=== PATIENT | female | born 1980 | race Hispanic/Latino ===

== ENCOUNTER 2018-10-07 20:06 | Inpatient (IN) | payer OTHER ==
[2018-10-07] MEDS ORDERED: NACL 0.9% 1000 ML 1,000 ML IV ONE ×2 (20:16→20:28)
[2018-10-07] MEDS ORDERED: BENADRYL IV ONE (20:29)
[2018-10-07] MEDS ORDERED: SOLU-Medrol IV ONE (20:29)
--- NOTE | 2018-10-07 20:43 | Emergency Department Report ---
ED N/V/D HPI - General Chief complaint: Nausea/Vomiting/Diarrhea Stated complaint: POSS ALLERGIC REACTION Time Seen by Provider: 10/07/18 20:14 Source: patient, family Mode of arrival: Ambulatory Limitations: No Limitations - History of Present Illness Initial comments: Patient is a 38-year-old female who is visiting [place] from [place] who also has a history of mast cell activation disorder and multiple allergies who is presenting with 3 days of nausea vomiting diarrhea. Patient states that she has had copious amounts of nausea vomiting. Patient states her stools possibly have blood in them. She states she felt as though her throat was closing yesterday and took her EpiPen. Patient is denying any itching or hives at this time. Patient's main complaint besides the nausea vomiting is that she is very weak at this time. Patient's states she has passed out in the past several days. Location: diffuse Radiation: none Severity: moderate Pain Scale: 6 Quality: cramping Consistency: constant Associated Symptoms: malaise, nausea/vomiting, shortness of breath, syncope, weakness. denies: chest pain, cough, diaphoresis, fever/chills, headaches, loss of appetite, rash, dysuria ED Review of Systems ROS: Stated complaint: POSS ALLERGIC REACTION Other details as noted in HPI Comment: All other systems reviewed and negative Skin: other (blisters at the base of the bilateral feet) ED Physical Exam - General Limitations: No Limitations General appearance: alert, lethargic - Head Head exam: Present: atraumatic, normocephalic - Eye Eye exam: Present: normal appearance, PERRL, EOMI - ENT ENT exam: Present: mucous membranes moist - Neck Neck exam: Present: normal inspection - Respiratory Respiratory exam: Present: normal lung sounds bilaterally. Absent: respiratory distress, wheezes, rales, rhonchi, stridor - Cardiovascular Cardiovascular Exam: Present: regular rate, normal rhythm. Absent: systolic murmur, diastolic murmur, rubs, gallop - GI/Abdominal GI/Abdominal exam: Present: soft, tenderness (diffuse), normal bowel sounds. Absent: distended, guarding, rebound, rigid - Extremities Exam Extremities exam: Present: normal inspection - Back Exam Back exam: Present: normal inspection - Neurological Exam Neurological exam: Present: alert, oriented X3 - Psychiatric Psychiatric exam: Present: normal affect, normal mood - Skin Skin exam: Present: warm, dry, intact, vesicles (base of bilateral feet with some mild surrounding erythema), pallor. Absent: normal color, rash ED Course Vital Signs 10/07/18 10/07/18 10/07/18 20:30 20:46 21:00 Pulse Rate 79 88 Respiratory 11 L 15 17 Rate Blood Pressure 112/78 112/78 O2 Sat by Pulse 99 100 Oximetry 10/07/18 10/07/18 10/07/18 21:15 21:26 21:30 Pulse Rate Respiratory 25 H 18 16 Rate Blood Pressure 112/78 104/68 O2 Sat by Pulse 99 100 Oximetry 10/07/18 10/07/18 10/07/18 21:45 22:29 22:31 Pulse Rate Respiratory 25 H Rate Blood Pressure 104/68 110/68 110/68 O2 Sat by Pulse 98 99 Oximetry 10/07/18 10/07/18 10/07/18 22:45 23:00 23:15 Pulse Rate Respiratory Rate Blood Pressure 110/68 116/69 116/69 O2 Sat by Pulse 100 100 100 Oximetry ED Medical Decision Making - Lab Data Result diagrams: 10/07/18 20:43 10/07/18 20:43 Lab Results 10/07/18 10/07/18 10/07/18 Range/Units 20:43 20:43 21:16 WBC 9.6 (4.5-11.0) K/mm3 RBC 4.33 (3.65-5.03) M/mm3 Hgb 11.0 (10.1-14.3) gm/dl Hct 33.0 (30.3-42.9) % MCV 76 L (79-97) fl MCH 25 L (28-32) pg MCHC 33 (30-34) % RDW 18.2 H (13.2-15.2) % Plt Count 417 (140-440) K/mm3 Lymph % (Auto) 6.3 L (13.4-35.0) % [place] % (Auto) 7.3 (0.0-7.3) % Eos % (Auto) 0.1 (0.0-4.3) % Baso % (Auto) 0.2 (0.0-1.8) % Lymph # 0.6 L (1.2-5.4) K/mm3 [place] # 0.7 (0.0-0.8) K/mm3 Eos # 0.0 (0.0-0.4) K/mm3 Baso # 0.0 (0.0-0.1) K/mm3 Seg Neutrophils % 86.1 H (40.0-70.0) % Seg Neutrophils # 8.2 H (1.8-7.7) K/mm3 Sodium 137 (137-145) mmol/L Potassium 3.4 L (3.6-5.0) mmol/L Chloride 100.8 (98-107) mmol/L Carbon Dioxide 19 L (22-30) mmol/L Anion Gap 21 mmol/L BUN 23 H (7-17) mg/dL Creatinine 0.9 (0.7-1.2) mg/dL Estimated GFR > 60 ml/min BUN/Creatinine Ratio 26 % Glucose 135 H (65-100) mg/dL POC Glucose 120 H (70-105) Calcium 8.3 L (8.4-10.2) mg/dL Total Bilirubin 0.70 (0.1-1.2) mg/dL AST 75 H (5-40) units/L ALT 72 H (7-56) units/L Alkaline Phosphatase 179 H (35-129) units/L Total Protein 6.3 (6.3-8.2) g/dL Albumin 3.3 L (3.9-5) g/dL Albumin/Globulin Ratio 1.1 % Urine Bilirubin (Negative) Urine RBC (Auto) (0.0-6.0) /HPF U Epithel Cells (Auto) (0-13.0) /HPF 10/07/18 Range/Units Unknown WBC (4.5-11.0) K/mm3 RBC (3.65-5.03) M/mm3 Hgb (10.1-14.3) gm/dl Hct (30.3-42.9) % MCV (79-97) fl MCH (28-32) pg MCHC (30-34) % RDW (13.2-15.2) % Plt Count (140-440) K/mm3 Lymph % (Auto) (13.4-35.0) % [place] % (Auto) (0.0-7.3) % Eos % (Auto) (0.0-4.3) % Baso % (Auto) (0.0-1.8) % Lymph # (1.2-5.4) K/mm3 [place] # (0.0-0.8) K/mm3 Eos # (0.0-0.4) K/mm3 Baso # (0.0-0.1) K/mm3 Seg Neutrophils % (40.0-70.0) % Seg Neutrophils # (1.8-7.7) K/mm3 Sodium (137-145) mmol/L Potassium (3.6-5.0) mmol/L Chloride (98-107) mmol/L Carbon Dioxide (22-30) mmol/L Anion Gap mmol/L BUN (7-17) mg/dL Creatinine (0.7-1.2) mg/dL Estimated GFR ml/min BUN/Creatinine Ratio % Glucose (65-100) mg/dL POC Glucose (70-105) Calcium (8.4-10.2) mg/dL Total Bilirubin (0.1-1.2) mg/dL AST (5-40) units/L ALT (7-56) units/L Alkaline Phosphatase (35-129) units/L Total Protein (6.3-8.2) g/dL Albumin (3.9-5) g/dL Albumin/Globulin Ratio % Urine Bilirubin Neg (Negative) Urine RBC (Auto) 1.0 (0.0-6.0) /HPF U Epithel Cells (Auto) 2.0 (0-13.0) /HPF - Radiology Data [facility] [address] [place] [address] Cat Scan Report Signed Patient: LUTHER SOTOMAYOR MR#: [id number] : 1980 Acct:[id number] Age/Sex: 38 / F ADM Date: 10/07/18 Loc: ED Attending Dr: Ordering Physician: GORDO KENDALL MD Date of Service: 10/07/18 Procedure(s): CT abdomen pelvis w con Accession Number(s): [id number] cc: GORDO KENDALL MD PROCEDURE: CT ABDOMEN PELVIS W CON TECHNIQUE: Computerized axial tomography of the abdomen and pelvis was performed after the IV injection of iodinated nonionic contrast. CT DOSE LENGTH PRODUCT: mGycm HISTORY: NVD and pain COMPARISONS: None . FINDINGS: Liver, spleen, pancreas and adrenal glands are within normal limits. Bilateral kidneys demonstrate uniform enhancement without hydronephrosis. Aorta is of normal caliber. There is no free fluid or free air. Gallbladder is unremarkable. Mild degree of fluid is noted in the colon. Mild degree diffuse colonic wall thickening is noted. Appendix is normal. A 2.4 x 3 cm cyst is noted involving the right adnexal region. Vertebral height is normal. Mild degree degenerative changes are noted involving the lumbar spine. IMPRESSION: Thickened colonic knowles are consistent with nonspecific colitis. A 2.4 x 3 cm cystic lesion in the right adnexal region most likely represents a right ovarian cyst. This document is electronically signed by Amina Presley MD., October 07 2018 10:56:53 PM ET Transcribed By: [facility] Dictated By: AMINA PRESLEY Electronically Authenticated By: AMINA PRESLEY Signed Date/Time: 10/07/182257 DD/ 34 TD/TT: 10/07/182235 - Medical Decision Making Active Medications Generic Name Dose Route Start Last Admin Trade Name Freq PRN Reason Stop Dose Admin Metronidazole 500 mg in 100 mls @ 200 mls/hr 10/07/18 23:09 Flagyl 500 Mg/100 Ml IV 10/07/18 23:38 ONCE ONE Protocol Piperacillin Sod/Tazobactam Sod 4.5 gm in 100 mls @ 200 mls/hr 10/07/18 23:09 Zosyn/Ns 4.5gm/100ml IV 10/07/18 23:38 ONCE ONE Patient was hydrated and given her menstrual symptomatic relief. Patient still very tender and abdomen and patient was given Bentyl and morphine. Patient started on IV antibiotics for diffuse colitis and the patient be admitted to the hospitalist service at this time. Critical care attestation.: If time is entered above; I have spent that time in minutes in the direct care of this critically ill patient, excluding procedure time. ED Disposition Clinical Impression: Dehydration, Vasovagal syncope, Colitis Disposition: OP ADMIT IP TO THIS HOSP Is pt being admited?: Yes Does the pt Need Aspirin: No Condition: Stable Time of Disposition: 23:29
[2018-10-07 20:57] LABS: Basophils % (Auto) 0.2 % (0.0-1.8); Eosinophils % (Auto) 0.1 % (0.0-4.3); Lymphocytes # (Auto) 0.6 K/mm3 (1.2-5.4); Lymphocytes % (Auto) 6.3 % (13.4-35.0); Mean Corpuscular HGB Conc 33 % (30-34); Mean Corpuscular Volume 76 fl (79-97); Monocytes # (Auto) 0.7 K/mm3 (0.0-0.8); Monocytes % (Auto) 7.3 % (0.0-7.3); Platelet Count 417 K/mm3 (140-440); Red Blood Count 4.33 M/mm3 (3.65-5.03); Red Cell Distribution Width 18.2 % (13.2-15.2)
[2018-10-07 21:12] LABS: Alanine Aminotransferase 72 units/L (7-56); Albumin 3.3 g/dL (3.9-5); BUN/Creatinine Ratio 26; Blood Urea Nitrogen 23 mg/dL (7-17); Calcium 8.3 mg/dL (8.4-10.2); Hemolysis Index 40
--- NOTE | 2018-10-07 22:58 | Cat Scan Report ---
PROCEDURE: CT ABDOMEN PELVIS W CON TECHNIQUE: Computerized axial tomography of the abdomen and pelvis was performed after the IV inject ion of iodinated nonionic contrast. CT DOSE LENGTH PRODUCT: mGycm HISTORY: NVD and pain COMPARISONS: None . FINDINGS: Liver, spleen, pancreas and adrenal glands are within normal limits. Bilateral kidneys demonstrate un iform enhancement without hydronephrosis. Aorta is of normal caliber. There is no free fluid or free air. Gallbladder is unremarkable. Mild degree of fluid is noted in the colon. Mild degree diffuse col onic wall thickening is noted. Appendix is normal. A 2.4 x 3 cm cyst is noted involving the right adn exal region. Vertebral height is normal. Mild degree degenerative changes are noted involving the lum bar spine. IMPRESSION: Thickened colonic knowles are consistent with nonspecific colitis. A 2.4 x 3 cm cystic lesion in the right adnexal region most likely represents a right ovarian cyst. This document is electronically signed by Louis Presley MD., October 07 2018 10:56:53 PM ET
[2018-10-07 23:02] LABS: Bilirubin,Urine NEG (Negative); Blood,Urine NEG (Negative); Color,Urine Yellow (Yellow); Mucus,Urine FEW /HPF
[2018-10-07] MEDS ORDERED: MORPHINE IV ONE (23:08)
[2018-10-07] MEDS ORDERED: ZOFRAN IV ONE (23:08)
[2018-10-07] MEDS ORDERED: BENTYL IM ONE (23:08)
[2018-10-07] MEDS ORDERED: FLAGYL 500 MG/100 ML 500 MG/100 ML BAG IV ONE (23:09)
[2018-10-07] MEDS ORDERED: ZOSYN/NS 4.5GM/100ML 4.5 GM/100 ML VIAL IV ONE (23:09)
[2018-10-07 23:12] LABS: HCG Qualitative,Urine Negative (Negative)
[2018-10-08] MEDS ORDERED: FLAGYL 500 MG/100 ML 500 MG/100 ML BAG IV ONE ×2 (00:45→01:00)
[2018-10-08] MEDS ORDERED: ZOFRAN IV PRN (00:46)
[2018-10-08] MEDS ORDERED: TYLENOL PO PRN (00:47)
[2018-10-08] MEDS ORDERED: PHENERGAN PO ONE (03:10)
[2018-10-08] MEDS ORDERED: PHENERGAN ONE (03:13)
[2018-10-08] MEDS ORDERED: MORPHINE ONE (03:14)
[2018-10-08] MEDS: MORPHINE IV PRN ×2 (03:17→10:16)
[2018-10-08] MEDS: NACL 0.9% 1000 ML 1,000 ML IV SCH ×3 (04:46→22:45)
[2018-10-08] MEDS: FLAGYL 500 MG/100 ML 500 MG/100 ML BAG IV SCH ×3 (05:07→22:59)
--- NOTE | 2018-10-08 05:29 | History and Physical Report ---
CHIEF COMPLAINT: Nausea, vomiting, and diarrhea. HISTORY OF PRESENTING ILLNESS: The patient is a 38-year-old female who is visiting [place] from [place] and has been having nausea, vomiting, and diarrhea going on for 3 days. The patient states that she has had large amount of vomiting going on and suspect that it could be from allergic reaction because she has history of mast cell activation disorder with multiple allergies and the patient said that she possibly might have some blood in the stool and said that she feels like throat was closing up yesterday and then she had to inject herself with her EpiPen. There is no history of hives or itching. Besides nausea and vomiting, the patient feels weak and denies history of chest pain or shortness of breath, and presented for evaluation. PAST MEDICAL HISTORY: The patient's past medical history is pertinent for mast cell activation disorder. PAST SURGICAL HISTORY: Unknown. FAMILY HISTORY: Noncontributory. SOCIAL HISTORY: The patient does not smoke, does not drink alcohol, and does not use illicit drugs. MEDICATIONS: The patient's home medications are not fully known other than the EpiPen that the patient uses as needed for allergic reaction. ALLERGIES: THE PATIENT IS ALLERGIC TO CORN, GELATIN, SHELLFISH, AND MANY OTHER PRODUCTS. REVIEW OF SYSTEMS: CONSTITUTIONAL: There is no fever, no chills, no diaphoresis. HEENT: There is no headache or sore throat. CARDIOVASCULAR SYSTEM: There is no chest pain or orthopnea. RESPIRATORY SYSTEM: There is no shortness of breath or cough. GASTROINTESTINAL: Nausea, vomiting, and diarrhea are noted. Feeling of throat closing up also noted. There is no constipation. NEUROLOGICAL SYSTEM: There is no numbness, no dizziness, no altered mental status. MUSCULOSKELETAL SYSTEM: There is no joint pain or swelling. DERMATOLOGICAL SYSTEM: There is no skin rash or itching. GENITOURINARY SYSTEM: There is no dysuria, hematuria, or flank pain. Rest of system review is normal. PHYSICAL EXAMINATION: GENERAL: At the time of exam, the patient was found to be alert and oriented x 3; and not in acute distress. VITAL SIGNS: At the initial time of presentation show normal temperature with pulse of 79, respirations 11, blood pressure of 102/78, O2 sat of 99% on room air. HEENT: Exam show pupils to be equal, round, reactive to light and accommodating. Extraocular muscles are intact. NECK: Supple with no JVD or carotid bruit. CARDIOVASCULAR SYSTEM: Show normal first and second heart sounds with no gallops or murmurs. RESPIRATORY SYSTEM: Show good air entry on both sides of the lungs with no abnormal breath sounds. GASTROINTESTINAL SYSTEM: Show abdomen to be full, soft with generalized tenderness, but no guarding, no rigidity, no rebound tenderness, and no organomegaly with bowel sounds normal. NEUROLOGIC SYSTEM: Show no focal deficit. MUSCULOSKELETAL SYSTEM: Show no joint swelling or tenderness. DERMATOLOGICAL SYSTEM: Show no skin rash. GENITOURINARY SYSTEM: Showing no costovertebral angle tenderness. PERTINENT IMAGING STUDIES: The patient had CT of the abdomen and pelvis done. CT of the abdomen and pelvis showed thickened colonic knowles consistent with nonspecific colitis. There is finding of right adnexal region cyst believed to be right ovarian cyst. LABORATORY RESULTS: The patient has CBC done with normal white count, normal hemoglobin, and normal hematocrit with elevated segmented neutrophil count in the CBC differential of 86.1. The patient's chemistry shows slight decrease in potassium of 3.4 with low CO2 of 19, slightly decreased calcium level of 8.3, elevated AST of 75 with elevated ALT of 72, and slightly decreased albumin of 3.3. The patient's urinalysis show elevated urine gravity of 1.050 with negative urine leukocyte esterase and negative urine nitrites and normal urine wbc. The patient's urine test was negative. DIAGNOSES: 1. Colitis. 2. Syncopal attack. 3. Acute gastroenteritis. PLAN OF CARE: 1. The patient will be admitted to medical surgical rojas on remote telemetry. 2. The patient will be on IV normal saline at 125 mL an hour. 3. The patient will be on IV morphine 2 mg every 3 hours as needed for pain and IV Zofran 4 mg every 8 hours for nausea and vomiting. 4. The patient will be on IV Zosyn 3.375 grams q. 8 hours and IV metronidazole 500 mg every 8 hours. 5. The patient will be on Tylenol 650 mg by mouth every 4 hours as needed for fever and headache. 6. The patient's home medication will be started as shown in the medication reconciliation section. JOB# [id number] OCN/NTS
[2018-10-08] MEDS: ZOSYN/NS 3.375GM/50ML 3.375 GM/50 ML BAG IV SCH ×3 (06:10→22:45)
[2018-10-08] MEDS ORDERED: HEPARIN SUB-Q SCH (10:00)
[2018-10-08] MEDS ORDERED: BRIVARACETAM 50 MG PO SCH (10:00)
[2018-10-08] MEDS ORDERED: BUPROPION 150 MG PO SCH (11:30)
[2018-10-08 12:39] LABS: Alanine Aminotransferase 55 units/L (7-56); Albumin 2.6 g/dL (3.9-5); Bilirubin,Direct < 0.2 mg/dL (0-0.2)
[2018-10-08 14:18] LABS: Hematocrit 29.4 % (30.3-42.9); Hemoglobin 9.8 gm/dl (10.1-14.3)
[2018-10-08] MEDS: WELLBUTRIN PO SCH (15:08)
[2018-10-08] MEDS: DIFLUCAN 200 MG/100 ML BAG IV SCH (15:08)
[2018-10-08] MEDS: ZOFRAN IV PRN ×2 (15:09→22:58)
[2018-10-08] MEDS: DILAUDID IV PRN ×2 (15:09→22:58)
[2018-10-08] MEDS: BENTYL PO SCH ×3 (15:09→22:59)
--- NOTE | 2018-10-08 17:21 | Progress Note ---
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 She denied any regional hives. I added to the hospital she was lethargic appearing and complaining mainly of the nausea vomiting. CTAP; IMPRESSION: Thickened colonic knowles are consistent with nonspecific colitis. A 2.4 x 3 cm cystic lesion in the right adnexal region most likely r epresents a right ovarian cyst. 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 History Interval history: Admitted with abdominal pain nausea vomiting and possible allergic reaction Patient seen and examined this morning still complains of nausea vomiting and di arrhea. Reports abdominal pain 3/10 in intensity. Reports that she has chronic pain syndrome secondary to ? Herve danlos syndrome. Hospitalist Physical - Physical exam Narrative exam: VITAL SIGNS: Reviewed. GENERAL: The patient appeared well nourished and normally developed, lethargic appearing. Vital signs as documented. HEAD: No signs of head trauma. EYES: Pupils are equal. Extraocular motions intact. EARS: Hearing grossly intact. MOUTH: Oropharynx is normal. NECK: No adenopathy, no JVD. CHEST: Chest with clear breath sounds bilaterally. No wheezes, rales, or rhonchi. CARDIAC: Regular rate and rhythm. S1 and S2, without murmurs, gallops, or rubs. VASCULAR: No Edema. Peripheral pulses normal and equal in all extremities. ABDOMEN: Soft, tender but nondistended. No rebound or guarding, and no masses palpated. Bowel Sounds normal. MUSCULOSKELETAL: Good range of motion of all major joints. Extremities without clubbing, cyanosis or edema. NEUROLOGIC EXAM: Alert and oriented x 3 No focal sensory or strength deficits. Speech normal. Follows commands. PSYCHIATRIC: Mood normal. SKIN: Pale appearing right fooT on the hallux lesion with erythema. - Constitutional Vitals: Temp Pulse Resp BP Pulse Ox 98.0 F 55 L 19 112/63 98 10/08/18 11:31 10/08/18 11:32 10/08/18 11:31 10/08/18 11:31 10/08/18 11:32 Results - Labs CBC & Chem 7: 10/08/18 13:40 10/07/18 20:43 Labs: Laboratory Last Values WBC 9.6 K/mm3 (4.5-11.0) 10/07/18 20:43 RBC 4.33 M/mm3 (3.65-5.03) 10/07/18 20:43 Hgb 9.8 gm/dl (10.1-14.3) L 10/08/18 13:40 Hct 29.4 % (30.3-42.9) L 10/08/18 13:40 MCV 76 fl (79-97) L 10/07/18 20:43 MCH 25 pg (28-32) L 10/07/18 20:43 MCHC 33 % (30-34) 10/07/18 20:43 RDW 18.2 % (13.2-15.2) H 10/07/18 20:43 Plt Count 417 K/mm3 (140-440) 10/07/18 20:43 Lymph % (Auto) 6.3 % (13.4-35.0) L 10/07/18 20:43 [place] % (Auto) 7.3 % (0.0-7.3) 10/07/18 20:43 Eos % (Auto) 0.1 % (0.0-4.3) 10/07/18 20:43 Baso % (Auto) 0.2 % (0.0-1.8) 10/07/18 20:43 Lymph # 0.6 K/mm3 (1.2-5.4) L 10/07/18 20:43 [place] # 0.7 K/mm3 (0.0-0.8) 10/07/18 20:43 Eos # 0.0 K/mm3 (0.0-0.4) 10/07/18 20:43 Baso # 0.0 K/mm3 (0.0-0.1) 10/07/18 20:43 Seg Neutrophils % 86.1 % (40.0-70.0) H 10/07/18 20:43 Seg Neutrophils # 8.2 K/mm3 (1.8-7.7) H 10/07/18 20:43 Sodium 137 mmol/L (137-145) 10/07/18 20:43 Potassium 3.4 mmol/L (3.6-5.0) L 10/07/18 20:43 Chloride 100.8 mmol/L (98-107) 10/07/18 20:43 Carbon Dioxide 19 mmol/L (22-30) L 10/07/18 20:43 Anion Gap 21 mmol/L 10/07/18 20:43 BUN 23 mg/dL (7-17) H 10/07/18 20:43 Creatinine 0.9 mg/dL (0.7-1.2) 10/07/18 20:43 Estimated GFR > 60 ml/min 10/07/18 20:43 BUN/Creatinine Ratio 26 % 10/07/18 20:43 Glucose 135 mg/dL (65-100) H 10/07/18 20:43 POC Glucose 126 (70-105) H 10/08/18 11:33 Calcium 8.3 mg/dL (8.4-10.2) L 10/07/18 20:43 Total Bilirubin 0.40 mg/dL (0.1-1.2) 10/08/18 11:30 Direct Bilirubin < 0.2 mg/dL (0-0.2) 10/08/18 11:30 Indirect Bilirubin 0.2 mg/dL 10/08/18 11:30 AST 40 units/L (5-40) 10/08/18 11:30 ALT 55 units/L (7-56) 10/08/18 11:30 Alkaline Phosphatase 129 units/L (35-129) 10/08/18 11:30 Total Protein 5.9 g/dL (6.3-8.2) L 10/08/18 11:30 Albumin 2.6 g/dL (3.9-5) L 10/08/18 11:30 Albumin/Globulin Ratio 0.8 % 10/08/18 11:30 Urine Color Yellow (Yellow) 10/07/18 Unknown Urine Turbidity Clear (Clear) 10/07/18 Unknown Urine pH 5.0 (5.0-7.0) 10/07/18 Unknown Ur Specific [place] 1.050 (1.003-1.030) H 10/07/18 Unknown Urine Protein 30 mg/dl mg/dL (Negative) 10/07/18 Unknown Urine Glucose (UA) Neg mg/dL (Negative) 10/07/18 Unknown Urine Ketones 80 mg/dL (Negative) 10/07/18 Unknown Urine Blood Neg (Negative) 10/07/18 Unknown Urine Nitrite Neg (Negative) 10/07/18 Unknown Urine Bilirubin Neg (Negative) 10/07/18 Unknown Urine Urobilinogen 2.0 mg/dL (<2.0) 10/07/18 Unknown Ur Leukocyte Esterase Neg (Negative) 10/07/18 Unknown Urine WBC (Auto) 1.0 /HPF (0.0-6.0) 10/07/18 Unknown Urine RBC (Auto) 1.0 /HPF (0.0-6.0) 10/07/18 Unknown U Epithel Cells (Auto) 2.0 /HPF (0-13.0) 10/07/18 Unknown Urine Mucus Few /HPF 10/07/18 Unknown Urine HCG, Qual Negative (Negative) 10/07/18 Unknown Active Medications - Current Medications Current Medications: Generic Name Dose Route Start Last Admin Trade Name Freq PRN Reason Stop Dose Admin Acetaminophen 650 mg 10/08/18 00:47 Tylenol PO Q4H PRN Fever >101 Bupropion HCl 150 mg 10/08/18 13:30 10/08/18 15:08 Wellbutrin PO 150 mg DAILY JOANA Administration Dicyclomine HCl 10 mg 10/08/18 14:00 10/08/18 15:09 Bentyl PO 10 mg QID JOANA Administration Hydromorphone HCl 1 mg 10/08/18 10:59 10/08/18 15:09 Dilaudid IV 1 mg Q4H PRN Administration Pain , Severe (7-10) Sodium Chloride 1,000 mls @ 150 mls/hr 10/07/18 23:45 10/08/18 13:41 Nacl 0.9% 1000 Ml IV 125 mls/hr DIRECT JOANA Administration Metronidazole 500 mg in 100 mls @ 100 mls/hr 10/08/18 06:00 10/08/18 13:37 Flagyl 500 Mg/100 Ml IV 100 mls/hr Q8HR JOANA Administration Protocol Piperacillin Sod/Tazobactam Sod 3.375 gm in 50 mls @ 100 mls/hr 10/08/18 06:00 10/08/18 16:31 Zosyn/Ns 3.375gm/50ml IV 100 mls/hr Q8HR JOANA Administration Protocol Fluconazole 200 mg in 100 mls @ 100 mls/hr 10/08/18 12:00 10/08/18 15:08 Diflucan IV 100 mls/hr Q24HR JOANA Administration Protocol Levothyroxine Sodium 25 mcg 10/09/18 06:00 Synthroid IV DAILY@0600 [facility] Miscellaneous Medication 50 mg 10/08/18 10:00 Brivaracetam [Briviact] PO BID [facility] Ondansetron HCl 4 mg 10/08/18 11:29 10/08/18 15:09 Zofran IV 4 mg Q4H PRN Administration Nausea And Vomiting
[2018-10-08 22:01] LABS: Amphetamine Screen,Urine PRESUMPTIVE NEGATIVE; Cannabinoid Screen,Urine PRESUMPTIVE NEGATIVE; Cocaine Screen,Urine PRESUMPTIVE NEGATIVE; Methadone Screen,Urine PRESUMPTIVE NEGATIVE; Opiate Screen,Urine PRESUMPTIVE NEGATIVE
[2018-10-08 22:16] LABS: Benzodiazepines Screen,Urine PRESUMPTIVE POSITIVE
[2018-10-09] MEDS: ZOFRAN IV PRN (03:54)
[2018-10-09] MEDS: SYNTHROID IV SCH (05:49)
[2018-10-09] MEDS: FLAGYL 500 MG/100 ML 500 MG/100 ML BAG IV SCH (05:56)
[2018-10-09] MEDS: NACL 0.9% 1000 ML 1,000 ML IV SCH (06:11)
[2018-10-09] MEDS ORDERED: D5NS 1,000 ML IV SCH (09:00)
[2018-10-09] MEDS ORDERED: FLEXERIL PO PRN (09:01)
[2018-10-09] MEDS ORDERED: IMODIUM PO PRN (09:01)
[2018-10-09] MEDS ORDERED: PROVENTIL IH PRN (09:01)
[2018-10-09] MEDS ORDERED: ZOFRAN IV PRN (09:11)
[2018-10-09] MEDS: BENADRYL IV SCH ×2 (10:57→18:31)
[2018-10-09] MEDS: DIFLUCAN 200 MG/100 ML BAG IV SCH (11:01)
[2018-10-09] MEDS: CLARITIN PO SCH (11:01)
[2018-10-09] MEDS: BENTYL PO SCH ×4 (11:02→21:16)
[2018-10-09] MEDS: WELLBUTRIN PO SCH (11:03)
[2018-10-09] MEDS: PEPCID PO SCH ×3 (11:14→21:16)
[2018-10-09] MEDS: ANCEF/NS 1 GM/50 ML 1 GM/50 ML BAG IV SCH ×2 (13:25→21:19)
[2018-10-09] MEDS ORDERED: VALIUM PO NR (14:37)
--- NOTE | 2018-10-09 14:37 | Progress Note ---
Assessment and Plan Assessment and plan: Patient is a 38-year-old female visiting [place] from [place] and presented to the hospital with nausea vomiting and diarrhea has been ongoing for 3 days, she states that she also has Herve danlos syndrome, the day prior to admission she reported by systolic function is closing and took her EpiPen. 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 Postural Orthostatic Tachycardia syndrome Erratic Bp Essential tremors Angoedema Patient has multiple medications which I have given to nursing staff to updated the med rec CTAP; IMPRESSION: Thickened colonic knowles are consistent with nonspecific colitis. A 2.4 x 3 cm cystic lesion in the right adnexal region most likely represents a right ovarian cyst. Colitis- Possible Viral with underlying gastroenteritis in the setting of significant medical hx Recurrent Diarrhea Nausea and vomiting NEAR syncope Acute gastroenteritis Right foot cellulites Chronic pain syndrome secondary to HERVE,danlos syndrome Anemia Right adnexal lesion ovarian cyst Hypokalemia Plan Continue supportive care We called and verified Hydromorphone dose from her pharmacy, Can switch to oral when able to keep food down Replace electrolytes Although I think patient has more of viral etiology, will continue abx in the setting of lower ext cellulitis also. Will give a Dose of valium at home dose, I wander if patients if patients intermittent disathria is secondary to underlying seizure like activity Antiemetics Pain control Wound care consult noted Continue abx, add antifungal DVT/GI prophy Plan of care discussed with the patient. History Interval history: Admitted with abdominal pain nausea vomiting and possible allergic reaction Patient seen and examined this morning still complains of nausea vomiting and diarrhea. Reports abdominal pain 3/10 in intensity. at bedside. Per nursing staff still with some nausea and vomiting Hospitalist Physical - Physical exam Narrative exam: VITAL SIGNS: Reviewed. GENERAL: The patient appeared well nourished and normally developed, lethargic appearing. Vital signs as documented. HEAD: No signs of head trauma. EYES: Pupils are equal. Extraocular motions intact. EARS: Hearing grossly intact. MOUTH: Oropharynx is normal. NECK: No adenopathy, no JVD. CHEST: Chest with clear breath sounds bilaterally. No wheezes, rales, or rhonchi. CARDIAC: Regular rate and rhythm. S1 and S2, without murmurs, gallops, or rubs. VASCULAR: No Edema. Peripheral pulses normal and equal in all extremities. ABDOMEN: Soft, tender but nondistended. No rebound or guarding, and no masses palpated. Bowel Sounds normal. MUSCULOSKELETAL: Good range of motion of all major joints. Extremities without clubbing, cyanosis or edema. NEUROLOGIC EXAM: Alert and oriented x 3 No focal sensory or strength deficits. Speech normal. Follows commands. PSYCHIATRIC: Mood normal. SKIN: Pale appearing, right foot on the hallux lesion with erythema. - Constitutional Vitals: Temp Pulse Resp BP Pulse Ox 98.2 F 52 L 28 H 138/80 95 10/09/18 11:50 10/09/18 11:50 10/09/18 11:50 10/09/18 11:50 10/09/18 11:50 Results - Labs CBC & Chem 7: 10/08/18 13:40 10/07/18 20:43 Labs: Laboratory Last Values WBC 9.6 K/mm3 (4.5-11.0) 10/07/18 20:43 RBC 4.33 M/mm3 (3.65-5.03) 10/07/18 20:43 Hgb 9.8 gm/dl (10.1-14.3) L 10/08/18 13:40 Hct 29.4 % (30.3-42.9) L 10/08/18 13:40 MCV 76 fl (79-97) L 10/07/18 20:43 MCH 25 pg (28-32) L 10/07/18 20:43 MCHC 33 % (30-34) 10/07/18 20:43 RDW 18.2 % (13.2-15.2) H 10/07/18 20:43 Plt Count 417 K/mm3 (140-440) 10/07/18 20:43 Lymph % (Auto) 6.3 % (13.4-35.0) L 10/07/18 20:43 [place] % (Auto) 7.3 % (0.0-7.3) 10/07/18 20:43 Eos % (Auto) 0.1 % (0.0-4.3) 10/07/18 20:43 Baso % (Auto) 0.2 % (0.0-1.8) 10/07/18 20:43 Lymph # 0.6 K/mm3 (1.2-5.4) L 10/07/18 20:43 [place] # 0.7 K/mm3 (0.0-0.8) 10/07/18 20:43 Eos # 0.0 K/mm3 (0.0-0.4) 10/07/18 20:43 Baso # 0.0 K/mm3 (0.0-0.1) 10/07/18 20:43 Seg Neutrophils % 86.1 % (40.0-70.0) H 10/07/18 20:43 Seg Neutrophils # 8.2 K/mm3 (1.8-7.7) H 10/07/18 20:43 Sodium 137 mmol/L (137-145) 10/07/18 20:43 Potassium 3.4 mmol/L (3.6-5.0) L 10/07/18 20:43 Chloride 100.8 mmol/L (98-107) 10/07/18 20:43 Carbon Dioxide 19 mmol/L (22-30) L 10/07/18 20:43 Anion Gap 21 mmol/L 10/07/18 20:43 BUN 23 mg/dL (7-17) H 10/07/18 20:43 Creatinine 0.9 mg/dL (0.7-1.2) 10/07/18 20:43 Estimated GFR > 60 ml/min 10/07/18 20:43 BUN/Creatinine Ratio 26 % 10/07/18 20:43 Glucose 135 mg/dL (65-100) H 10/07/18 20:43 POC Glucose 125 (70-105) H 10/09/18 07:32 Calcium 8.3 mg/dL (8.4-10.2) L 10/07/18 20:43 Total Bilirubin 0.40 mg/dL (0.1-1.2) 10/08/18 11:30 Direct Bilirubin < 0.2 mg/dL (0-0.2) 10/08/18 11:30 Indirect Bilirubin 0.2 mg/dL 10/08/18 11:30 AST 40 units/L (5-40) 10/08/18 11:30 ALT 55 units/L (7-56) 10/08/18 11:30 Alkaline Phosphatase 129 units/L (35-129) 10/08/18 11:30 Total Protein 5.9 g/dL (6.3-8.2) L 10/08/18 11:30 Albumin 2.6 g/dL (3.9-5) L 10/08/18 11:30 Albumin/Globulin Ratio 0.8 % 10/08/18 11:30 Urine Color Yellow (Yellow) 10/07/18 Unknown Urine Turbidity Clear (Clear) 10/07/18 Unknown Urine pH 5.0 (5.0-7.0) 10/07/18 Unknown Ur Specific [place] 1.050 (1.003-1.030) H 10/07/18 Unknown Urine Protein 30 mg/dl mg/dL (Negative) 10/07/18 Unknown Urine Glucose (UA) Neg mg/dL (Negative) 10/07/18 Unknown Urine Ketones 80 mg/dL (Negative) 10/07/18 Unknown Urine Blood Neg (Negative) 10/07/18 Unknown Urine Nitrite Neg (Negative) 10/07/18 Unknown Urine Bilirubin Neg (Negative) 10/07/18 Unknown Urine Urobilinogen 2.0 mg/dL (<2.0) 10/07/18 Unknown Ur Leukocyte Esterase Neg (Negative) 10/07/18 Unknown Urine WBC (Auto) 1.0 /HPF (0.0-6.0) 10/07/18 Unknown Urine RBC (Auto) 1.0 /HPF (0.0-6.0) 10/07/18 Unknown U Epithel Cells (Auto) 2.0 /HPF (0-13.0) 10/07/18 Unknown Urine Mucus Few /HPF 10/07/18 Unknown Urine HCG, Qual Negative (Negative) 10/07/18 Unknown Urine Opiates Screen Presumptive negative 10/08/18 10:58 Urine Methadone Screen Presumptive negative 10/08/18 10:58 Ur Barbiturates Screen Presumptive negative 10/08/18 10:58 Ur Phencyclidine Scrn Presumptive negative 10/08/18 10:58 Ur Amphetamines Screen Presumptive negative 10/08/18 10:58 U Benzodiazepines Scrn Presumptive positive 10/08/18 10:58 Urine Cocaine Screen Presumptive negative 10/08/18 10:58 U Marijuana (THC) Screen Presumptive negative 10/08/18 10:58 Drugs of Abuse Note Disclamer 10/08/18 10:58 Active Medications - Current Medications Current Medications: Generic Name Dose Route Start Last Admin Trade Name Freq PRN Reason Stop Dose Admin Acetaminophen 650 mg 10/08/18 00:47 Tylenol PO Q4H PRN Fever >101 Albuterol 2.5 mg 10/09/18 09:01 Proventil IH Q4HRT PRN Shortness Of Breath Alprazolam 3 mg 10/09/18 22:00 Xanax PO QHS JOANA Bupropion HCl 150 mg 10/08/18 13:30 10/09/18 11:03 Wellbutrin PO 150 mg DAILY JOANA Administration Cyclobenzaprine HCl 5 mg 10/09/18 09:01 Flexeril PO Q8H PRN Muscle Spasm Dicyclomine HCl 10 mg 10/08/18 14:00 10/09/18 11:02 Bentyl PO 10 mg QID JOANA Administration Diphenhydramine HCl 25 mg 10/09/18 10:00 10/09/18 10:57 Benadryl IV 25 mg Q8H JOANA Administration Famotidine 20 mg 10/09/18 09:30 10/09/18 11:14 Pepcid PO 20 mg TID JOANA Administration Gabapentin 600 mg 10/09/18 14:00 Neurontin PO Q8HR JOANA Hydromorphone HCl 1 mg 10/08/18 10:59 10/08/18 22:58 Dilaudid IV 1 mg Q4H PRN Administration Pain , Severe (7-10) Fluconazole 200 mg in 100 mls @ 100 mls/hr 10/08/18 12:00 10/09/18 11:01 Diflucan IV 100 mls/hr Q24HR JOANA Administration Protocol Cefazolin Sodium 1 gm in 50 mls @ 100 mls/hr 10/09/18 12:00 10/09/18 13:25 Ancef/Ns 1 Gm/50 Ml IV 100 mls/hr Q8HR JOANA Administration Protocol Dextrose/Sodium Chloride 1,000 mls @ 150 mls/hr 10/09/18 09:00 10/09/18 10:57 D5ns IV 10/09/18 15:39 150 mls/hr DIRECT JOANA Administration Levothyroxine Sodium 25 mcg 10/09/18 06:00 10/09/18 05:49 Synthroid IV 25 mcg DAILY@0600 JOANA Administration Loperamide HCl 2 mg 10/09/18 09:01 Imodium PO Q2H PRN Diarrhea Loratadine 10 mg 10/09/18 10:00 10/09/18 11:01 Claritin PO 10 mg QDAY JOANA Administration Miscellaneous Medication 50 mg 10/08/18 10:00 Brivaracetam [Briviact] PO BID [facility] Montelukast Sodium 10 mg 10/09/18 22:00 Singulair PO QHS [facility] Ondansetron HCl 8 mg 10/09/18 09:11 Zofran IV Q4H PRN Nausea And Vomiting Quetiapine Fumarate 200 mg 10/09/18 22:00 Seroquel PO QHS [facility] Nutrition/Malnutrition Assess - Dietary Evaluation Nutrition/Malnutrition Findings: Nutrition Notes Start: 10/09/18 11:41 Freq: Status: Active Protocol: Document 10/09/18 11:42 TW (Rec: 10/09/18 13:04 TW [id number]) Co-Sign 10/09/18 11:42 LP Nutrition Notes Need for Assessment generated from: powder expert Initial or Follow up Assessment Other Pertinent Diagnosis Colitis Current Diet Regular Labs/Tests reviewed Pertinent Medications reviewed Height 5 ft 4 in Weight 77.6 kg [place] Body Weight (kg) 54.54 BMI 29.3 Intake Prior to Admission Poor Weight Status Overweight Subjective/Other Information RN screen for chewing difficulty. Pt denies chewing/ swallowing difficulties. 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 Pt reports several food allergies and only being able to tolerate sprite, chicken, white rice, and broccoli without feeling nauseous and vomiting. Noted several cans of sprite at bedside. Pt reports eating 1-2 bites of chicken before vomiting. Pt reports N/V x 4 days, and last meal she tolerated was . Pt denies wt loss. Percent of energy/protein needs met: <25%/<25% Burn Absent Trauma Absent GI Symptoms Nausea,Vomiting Food Allergy Yes Current % PO Poor (25-49%) #1 Nutrition Diagnosis Inadequate protein-energy intake Etiology N/V, colitis As Evidenced by Signs and Symptoms pt reporting 4 day episode of N/V, pt reporting not eating x 4 days Is patient on ventilator? No Is Patient Ambulatory and/or Out of Bed Yes REE-([facility]-ambulatory/OOB) [ 1866.800 NUTR.MSJOOB] Calculation Used for Recommendations [facility] Additional Notes pro: 62-78g/day (0.8-1g/kg) fluid: 1mL/kcal Nutrition Intervention Change Diet Order: Continue Current Goal #1 Meet at least 75% of kcal and pro needs via PO intake Follow-Up By: 10/11/18 Additional Comments F/U: intakes
[2018-10-09] MEDS: NEURONTIN PO SCH ×2 (15:01→22:00)
[2018-10-09] MEDS ORDERED: XANAX PO SCH (22:00)
[2018-10-09] MEDS ORDERED: SINGULAIR PO SCH (22:00)
[2018-10-10] MEDS: BENADRYL IV SCH ×2 (02:11→14:19)
[2018-10-10] MEDS: ANCEF/NS 1 GM/50 ML 1 GM/50 ML BAG IV SCH ×2 (05:57→14:09)
[2018-10-10] MEDS: NEURONTIN PO SCH ×2 (05:58→14:09)
[2018-10-10] MEDS: SYNTHROID IV SCH (05:58)
[2018-10-10 08:09] LABS: Albumin 2.6 g/dL (3.9-5); Calcium 7.6 mg/dL (8.4-10.2)
[2018-10-10] MEDS ORDERED: SODIUM BICARBONATE 150 MEQ in D5W 1,000 ML IV ONE (09:00)
[2018-10-10] MEDS: WELLBUTRIN PO SCH (09:43)
[2018-10-10] MEDS: BENTYL PO SCH ×2 (09:44→14:09)
[2018-10-10] MEDS: PEPCID PO SCH ×2 (09:44→14:09)
[2018-10-10] MEDS: CLARITIN PO SCH (09:44)
[2018-10-10] MEDS: DIFLUCAN 200 MG/100 ML BAG IV SCH (09:46)
--- NOTE | 2018-10-10 11:31 | Discharge Summary ---
Providers - Providers Date of Admission: 10/07/18 23:30 Attending physician: JYOTI LOPEZ MD 10/08/18 06:56 Consult to Wound/ET Nurse [CONS] Routine Reason For Exam: wound eval 10/09/18 09:49 Physical Therapy Evaluation and Treat [CONS] Routine Comment: Reason For Exam: ataxia [facility] Reason for admission: CELLULITIS Condition: Stable Hospital course: Patient is a 38-year-old female visiting [place] from [place] and presented to the hospital with nausea vomiting and diarrhea has been ongoing for 3 days, she states that she also has Herve danlos syndrome, the day prior to admission she reported by systolic function is closing and took her EpiPen. 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 Postural Orthostatic Tachycardia syndrome Erratic Bp Essential tremors Angioedema During the course of the stay, the patient mentioned that she always has Diarrhea, intermittently since child alejandre. She received supportive care and as improving her arrived and following additional 24 hrs he mentioned that patient will be better served going home and is back to her baseline. the patient also agreed she had gone 36hrs or more without vomiting. she reports she is normally nauseous. her foot cellulitis was improving. I discussed this infection with her and the need to have it re-evaluated on arrival home. I also discussed using open toe shoes. Her echoed that he has advised her multiple times to wear open toe shoes rather than the closed and small shoes she wears. she was also treated with antifungal in addition to the antibiotics. We had extensive discussion about allergy evalution prior to traveling considering her medical conditions. Electrolytes was replaced CTAP; IMPRESSION: Thickened colonic knowles are consistent with nonspecific colitis. A 2.4 x 3 cm cystic lesion in the right adnexal region most likely represents a right ovarian cyst. 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 GENERAL: The patient appeared well nourished and normally developed, lethargic appearing. Vital signs as documented. HEAD: No signs of head trauma. EYES: Pupils are equal. Extraocular motions intact. EARS: Hearing grossly intact. MOUTH: Oropharynx is normal. NECK: No adenopathy, no JVD. CHEST: Chest with clear breath sounds bilaterally. No wheezes, rales, or rhonchi. CARDIAC: Regular rate and rhythm. S1 and S2, without murmurs, gallops, or rubs. VASCULAR: No Edema. Peripheral pulses normal and equal in all extremities. ABDOMEN: Soft, tender but nondistended. No rebound or guarding, and no masses palpated. Bowel Sounds normal. MUSCULOSKELETAL: Good range of motion of all major joints. Extremities without clubbing, cyanosis or edema. NEUROLOGIC EXAM: Alert and oriented x 3 No focal sensory or strength deficits. Speech normal. Follows commands. PSYCHIATRIC: Mood normal. SKIN: Pale appearing, right foot on the hallux lesion with erythema. - Constitutional Vitals: Temp Pulse Resp BP Pulse Ox 98.6 F 68 20 121/80 94 10/10/18 05:04 10/10/18 05:04 10/10/18 05:04 10/10/18 05:04 10/10/18 05:04 Plan Activity: advance as tolerated, fall precautions Diet: regular Special Instructions: record daily BP diary Follow up with: PRIMARY CARE, [Referring] - 7 Days Prescriptions: Cephalexin [Keflex] 500 mg PO QID #20 capsule Potassium Chloride 20 meq PO QDAY #4 packet Ondansetron [Zofran Odt] 4 mg PO Q8HR #30 tabmariluz
[2018-10-10 13:57] VITALS: BP 105/66
[2018-10-10 14:04] LABS: Calcium 7.4 mg/dL (8.4-10.2)
[2018-10-10] MEDS ORDERED: K-DUR PO ONE ×2 (15:24→18:26)
[2018-10-10] MEDS: KCL 10MEQ/100ML 10 MEQ/100 ML BAG IV SCH ×2 (16:28→18:06)
--- NOTE | 2018-10-10 16:29 | Progress Note ---
Hospitalist Physical - Constitutional Vitals: Temp Pulse Resp BP Pulse Ox 98.5 F 73 20 105/66 95 10/10/18 13:56 10/10/18 13:56 10/10/18 13:56 10/10/18 13:56 10/10/18 13:56 Results - Labs CBC & Chem 7: 10/08/18 13:40 10/10/18 13:09 Labs: Laboratory Last Values WBC 9.6 K/mm3 (4.5-11.0) 10/07/18 20:43 RBC 4.33 M/mm3 (3.65-5.03) 10/07/18 20:43 Hgb 9.8 gm/dl (10.1-14.3) L 10/08/18 13:40 Hct 29.4 % (30.3-42.9) L 10/08/18 13:40 MCV 76 fl (79-97) L 10/07/18 20:43 MCH 25 pg (28-32) L 10/07/18 20:43 MCHC 33 % (30-34) 10/07/18 20:43 RDW 18.2 % (13.2-15.2) H 10/07/18 20:43 Plt Count 417 K/mm3 (140-440) 10/07/18 20:43 Lymph % (Auto) 6.3 % (13.4-35.0) L 10/07/18 20:43 [place] % (Auto) 7.3 % (0.0-7.3) 10/07/18 20:43 Eos % (Auto) 0.1 % (0.0-4.3) 10/07/18 20:43 Baso % (Auto) 0.2 % (0.0-1.8) 10/07/18 20:43 Lymph # 0.6 K/mm3 (1.2-5.4) L 10/07/18 20:43 [place] # 0.7 K/mm3 (0.0-0.8) 10/07/18 20:43 Eos # 0.0 K/mm3 (0.0-0.4) 10/07/18 20:43 Baso # 0.0 K/mm3 (0.0-0.1) 10/07/18 20:43 Seg Neutrophils % 86.1 % (40.0-70.0) H 10/07/18 20:43 Seg Neutrophils # 8.2 K/mm3 (1.8-7.7) H 10/07/18 20:43 Sodium 145 mmol/L (137-145) 10/10/18 13:09 Potassium 2.7 mmol/L (3.6-5.0) L* D 10/10/18 13:09 Chloride 108.9 mmol/L (98-107) H 10/10/18 13:09 Carbon Dioxide 24 mmol/L (22-30) D 10/10/18 13:09 Anion Gap 15 mmol/L 10/10/18 13:09 BUN 13 mg/dL (7-17) 10/10/18 13:09 Creatinine 1.2 mg/dL (0.7-1.2) 10/10/18 13:09 Estimated GFR 50 ml/min 10/10/18 13:09 BUN/Creatinine Ratio 11 % 10/10/18 13:09 Glucose 120 mg/dL (65-100) H 10/10/18 13:09 POC Glucose 111 (70-105) H 10/10/18 08:08 Calcium 7.4 mg/dL (8.4-10.2) L 10/10/18 13:09 Total Bilirubin 0.20 mg/dL (0.1-1.2) 10/10/18 07:08 Direct Bilirubin < 0.2 mg/dL (0-0.2) 10/08/18 11:30 Indirect Bilirubin 0.2 mg/dL 10/08/18 11:30 AST 31 units/L (5-40) 10/10/18 07:08 ALT 36 units/L (7-56) 10/10/18 07:08 Alkaline Phosphatase 97 units/L (35-129) 10/10/18 07:08 Total Protein 5.5 g/dL (6.3-8.2) L 10/10/18 07:08 Albumin 2.6 g/dL (3.9-5) L 10/10/18 07:08 Albumin/Globulin Ratio 0.9 % 10/10/18 07:08 Urine Color Yellow (Yellow) 10/07/18 Unknown Urine Turbidity Clear (Clear) 10/07/18 Unknown Urine pH 5.0 (5.0-7.0) 10/07/18 Unknown Ur Specific [place] 1.050 (1.003-1.030) H 10/07/18 Unknown Urine Protein 30 mg/dl mg/dL (Negative) 10/07/18 Unknown Urine Glucose (UA) Neg mg/dL (Negative) 10/07/18 Unknown Urine Ketones 80 mg/dL (Negative) 10/07/18 Unknown Urine Blood Neg (Negative) 10/07/18 Unknown Urine Nitrite Neg (Negative) 10/07/18 Unknown Urine Bilirubin Neg (Negative) 10/07/18 Unknown Urine Urobilinogen 2.0 mg/dL (<2.0) 10/07/18 Unknown Ur Leukocyte Esterase Neg (Negative) 10/07/18 Unknown Urine WBC (Auto) 1.0 /HPF (0.0-6.0) 10/07/18 Unknown Urine RBC (Auto) 1.0 /HPF (0.0-6.0) 10/07/18 Unknown U Epithel Cells (Auto) 2.0 /HPF (0-13.0) 10/07/18 Unknown Urine Mucus Few /HPF 10/07/18 Unknown Urine HCG, Qual Negative (Negative) 10/07/18 Unknown Urine Opiates Screen Presumptive negative 10/08/18 10:58 Urine Methadone Screen Presumptive negative 10/08/18 10:58 Ur Barbiturates Screen Presumptive negative 10/08/18 10:58 Ur Phencyclidine Scrn Presumptive negative 10/08/18 10:58 Ur Amphetamines Screen Presumptive negative 10/08/18 10:58 U Benzodiazepines Scrn Presumptive positive 10/08/18 10:58 Urine Cocaine Screen Presumptive negative 10/08/18 10:58 U Marijuana (THC) Screen Presumptive negative 10/08/18 10:58 Drugs of Abuse Note Disclamer 10/08/18 10:58 Active Medications - Current Medications Current Medications: Generic Name Dose Route Start Last Admin Trade Name Freq PRN Reason Stop Dose Admin Acetaminophen 650 mg 10/08/18 00:47 Tylenol PO Q4H PRN Fever >101 Albuterol 2.5 mg 10/09/18 09:01 Proventil IH Q4HRT PRN Shortness Of Breath Alprazolam 3 mg 10/09/18 22:00 10/09/18 22:00 Xanax PO Not Given QHS JOANA Bupropion HCl 150 mg 10/08/18 13:30 10/10/18 09:43 Wellbutrin PO 150 mg DAILY JOANA Administration Cyclobenzaprine HCl 5 mg 10/09/18 09:01 Flexeril PO Q8H PRN Muscle Spasm Dicyclomine HCl 10 mg 10/08/18 14:00 10/10/18 14:09 Bentyl PO 10 mg QID JOANA Administration Diphenhydramine HCl 25 mg 10/09/18 10:00 10/10/18 14:19 Benadryl IV 25 mg Q8H JOANA Administration Famotidine 20 mg 10/09/18 09:30 10/10/18 14:09 Pepcid PO 20 mg TID JOANA Administration Gabapentin 600 mg 10/09/18 14:00 10/10/18 14:09 Neurontin PO 600 mg Q8HR JOANA Administration Hydromorphone HCl 1 mg 10/08/18 10:59 10/08/18 22:58 Dilaudid IV 1 mg Q4H PRN Administration Pain , Severe (7-10) Fluconazole 200 mg in 100 mls @ 100 mls/hr 10/08/18 12:00 10/10/18 09:46 Diflucan IV 100 mls/hr Q24HR JOANA Administration Protocol Cefazolin Sodium 1 gm in 50 mls @ 100 mls/hr 10/09/18 12:00 10/10/18 14:09 Ancef/Ns 1 Gm/50 Ml IV 100 mls/hr Q8HR JOANA Administration Protocol Potassium Chloride 10 meq in 100 mls @ 100 mls/hr 10/10/18 16:00 10/10/18 16:28 Kcl 10meq/100ml IV 10/10/18 17:59 100 mls/hr Q1H JOANA Administration Potassium Chloride 10 meq in 100 mls @ 100 mls/hr 10/10/18 18:00 Kcl 10meq/100ml IV 10/10/18 19:59 Q1H JOANA Levothyroxine Sodium 25 mcg 10/09/18 06:00 10/10/18 05:58 Synthroid IV 25 mcg DAILY@0600 JOANA Administration Loperamide HCl 2 mg 10/09/18 09:01 Imodium PO Q2H PRN Diarrhea Loratadine 10 mg 10/09/18 10:00 10/10/18 09:44 Claritin PO 10 mg QDAY JOANA Administration Miscellaneous Medication 50 mg 10/08/18 10:00 Brivaracetam [Briviact] PO BID [facility] Montelukast Sodium 10 mg 10/09/18 22:00 10/09/18 21:17 Singulair PO Not Given QHS JOANA Ondansetron HCl 8 mg 10/09/18 09:11 10/10/18 15:55 Zofran IV 8 mg Q4H PRN Administration Nausea And Vomiting Potassium Chloride 40 meq 10/10/18 18:26 K-Dur PO 10/10/18 18:27 ONCE ONE Quetiapine Fumarate 200 mg 10/09/18 22:00 10/09/18 21:17 Seroquel PO 200 mg QHS JOANA Administration Nutrition/Malnutrition Assess - Dietary Evaluation Nutrition/Malnutrition Findings: Nutrition Notes Start: 10/09/18 11:41 Freq: Status: Active Protocol: Document 10/09/18 11:42 TW (Rec: 10/09/18 13:04 TW [id number]) Co-Sign 10/09/18 11:42 LP Nutrition Notes Need for Assessment generated from: brick chimney builder Initial or Follow up Assessment Other Pertinent Diagnosis Colitis Current Diet Regular Labs/Tests reviewed Pertinent Medications reviewed Height 5 ft 4 in Weight 77.6 kg [place] Body Weight (kg) 54.54 BMI 29.3 Intake Prior to Admission Poor Weight Status Overweight Subjective/Other Information RN screen for chewing difficulty. Pt denies chewing/ swallowing difficulties. 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 Pt reports several food allergies and only being able to tolerate sprite, chicken, white rice, and broccoli without feeling nauseous and vomiting. Noted several cans of sprite at bedside. Pt reports eating 1-2 bites of chicken before vomiting. Pt reports N/V x 4 days, and last meal she tolerated was . Pt denies wt loss. Percent of energy/protein needs met: <25%/<25% Burn Absent Trauma Absent GI Symptoms Nausea,Vomiting Food Allergy Yes Current % PO Poor (25-49%) #1 Nutrition Diagnosis Inadequate protein-energy intake Etiology N/V, colitis As Evidenced by Signs and Symptoms pt reporting 4 day episode of N/V, pt reporting not eating x 4 days Is patient on ventilator? No Is Patient Ambulatory and/or Out of Bed Yes REE-([facility]-ambulatory/OOB) [ 1866.800 [email or web address]] Calculation Used for Recommendations [facility] Additional Notes pro: 62-78g/day (0.8-1g/kg) fluid: 1mL/kcal Nutrition Intervention Change Diet Order: Continue Current Goal #1 Meet at least 75% of kcal and pro needs via PO intake Follow-Up By: 10/11/18 Additional Comments F/U: intakes
[2018-10-10] MEDS ORDERED: NACL 0.9% 500 ML 500 ML IV ONE (16:33)
[2018-10-10] MEDS ORDERED: KCL 10MEQ/100ML 10 MEQ/100 ML BAG IV SCH (18:00)
[2018-10-10] MEDS ORDERED: D5W/0.45% NACL/KCL 30 MEQ 30 MEQ/1,000 ML BAG IV SCH (20:00)
== END 2018-10-10 20:12 | disposition home or self-care (01) | DRG 392 ==
LOC: ED 20:06 → 3A 23:30
PROVIDERS: ADMIT Internal Medicine; ATTEND Internal Medicine
DX: A08.4 Viral intestinal infection, unspecified (principal); L03.115 Cellulitis of right lower limb; Q79.6 Ehlers-Danlos syndromes; E44.0 Moderate protein-calorie malnutrition; R55 Syncope and collapse; D64.9 Anemia, unspecified; G25.0 Essential tremor; T78.3XXA Angioneurotic edema, initial encounter; G89.4 Chronic pain syndrome; N83.299 Other ovarian cyst, unspecified side; Z91.013 Allergy to seafood
CPT/HCPCS: 36415; 74177; 80048; 80053; 80076; 80307; 81001; 81025; 82962; 84132; 85014; 85018; 85025; G0378; J0500; J0690; J1170; J1200; J1450; J2270; J2405; J2543; J2930; J3480; J7030; J7040; J7042; J7070; Q0169; Q9967